=== PATIENT | female | born 1960 | race Two or more races ===

== ENCOUNTER 2021-03-10 17:16 | Emergency (ER) | payer MEDICARE, OTHER ==
[~2021-03-10] VITALS: Ht 157.5 cm; Wt 81.6 kg
[2021-03-10] MEDS ORDERED: MORPHINE SULF INJ 2 MG/ML SYRINGE 1ML IV ONE (20:15)
[2021-03-10] MEDS ORDERED: ONDANSETRON HCL 4 MG/2 ML VIAL IV ONE (20:15)
[2021-03-10] MEDS ORDERED: HYDROcodone-ACET 5/325MG TAB PO ONE (20:45)
[2021-03-10 21:02] VITALS: BP 135/72
[2021-03-10] MEDS ORDERED: ONDANSETRON ODT 4 MG TAB PO ONE (22:45)
== END 2021-03-10 23:03 | disposition home or self-care (01) ==
LOC: EDBD 17:16 → ER 17:16
DX: S06.0X9A Concussion with loss of consciousness of unspecified duration, initial encounter (principal); S16.1XXA Strain of muscle, fascia and tendon at neck level, initial encounter; S81.811A Laceration without foreign body, right lower leg, initial encounter; S50.11XA Contusion of right forearm, initial encounter; S90.01XA Contusion of right ankle, initial encounter; S20.212A Contusion of left front wall of thorax, initial encounter; S30.1XXA Contusion of abdominal wall, initial encounter; E11.9 Type 2 diabetes mellitus without complications; V43.62XA Car passenger injured in collision with other type car in traffic accident, initial encounter; Y93.89 Activity, other specified; Y92.488 Other paved roadways as the place of occurrence of the external cause; Y99.8 Other external cause status
CPT/HCPCS: 29125; 29515; 70450; 71250; 72125; 73090; 73590; 73620; 74176; 96374; 96375; 99285; J2270; J2405; Q0162